=== PATIENT | female | born 1950 | race Caucasian/White ===

== ENCOUNTER 2018-11-13 01:29 | Observation (INO) | payer MEDICARE, OTHER ==
[2018-11-12 13:58] LABS: INR 0.91
[~2018-11-13] VITALS: Ht 165.1 cm; Wt 74.8 kg
[2018-11-13] VITALS (18 sets, daily range): BP systolic 97–144; BP diastolic 61–90
[~2018-11-13 01:29] MED LIST: ACETAMINOPHEN 500 MG TAB PO ONE; ATOR20TA22 PO; CELECOXIB 200 MG CAP PO ONE; DULO60CA56 PO; FAMOTIDINE 20 MG TAB PO ONE; LIDOCAINE/SOD BICARB 8.4% SYR ID ONE; MIDAZOLAM 2 MG/2 ML VIAL IVP PRN; MULT-1335 PO; NORMOSOL R SOLN(*) 1000 ML BAG 1,000 ML IV PRN; OMEP40CA48 PO; PREGABALIN 150 MG CAPSULE PO ONE; ROPIVACAINE 0.2% 400 MG/200ML 250 ML CONINFUS ONE; ROPIVACAINE/EPI/CLONIDINE/KET 50 ML SYRINGE INJ ONE; TRANEXAMIC AC 1000 MG/10ML SDV 1,000 MG in DEXTROSE 5% 50 ML BAG 50 ML IV ONE; ceFAZolin(*) 1 GM VIAL 1 GM in NS(*) 0.9% 100 ML ADDVANT BAG 100 ML IVPB ONE
[2018-11-13] MEDS ORDERED: FAMOTIDINE 20 MG TAB PO ONE (06:15)
[2018-11-13] MEDS ORDERED: PREGABALIN 150 MG CAPSULE PO ONE (06:15)
[2018-11-13] MEDS ORDERED: ROPIVACAINE/EPI/CLONIDINE/KET 50 ML SYRINGE INJ ONE (06:15)
[2018-11-13] MEDS ORDERED: ceFAZolin(*) 1 GM VIAL 1 GM in NS(*) 0.9% 100 ML MINI-BAG 100 ML IVPB ONE (06:15)
[2018-11-13] MEDS ORDERED: TRANEXAMIC AC 1000 MG/10ML SDV 1,000 MG in DEXTROSE 5% 50 ML BAG 50 ML IV ONE (06:15)
[2018-11-13] MEDS ORDERED: CELECOXIB 200 MG CAP PO ONE (06:15)
[2018-11-13] MEDS ORDERED: MIDAZOLAM 2 MG/2 ML VIAL IVP PRN (06:15)
[2018-11-13] MEDS ORDERED: ROPIVACAINE 0.2% 400 MG/200ML 250 ML CONINFUS ONE (06:15)
[2018-11-13] MEDS ORDERED: ACETAMINOPHEN 500 MG TAB PO ONE (06:15)
[2018-11-13] MEDS ORDERED: LIDOCAINE/SOD BICARB 8.4% SYR ID ONE (06:15)
[2018-11-13] MEDS ORDERED: NORMOSOL R SOLN(*) 1000 ML BAG 1,000 ML IV PRN ×2 (06:15→09:40)
[2018-11-13] MEDS ORDERED: fentaNYL CITR 250 MCG/5 ML AMP ONE (06:34)
[2018-11-13] MEDS ORDERED: PROPOFOL EMUL(*) 10MG/ML 20 ML 20 ML ONE (06:35)
[2018-11-13] MEDS ORDERED: LIDOCAINE 2% IV 100 MG/5ML SYR ONE (06:35)
[2018-11-13] MEDS ORDERED: EPINEPHrine HCL 1 MG/ML AMP ONE (06:38)
[2018-11-13] MEDS ORDERED: ROPIVACAINE 0.5% 20 ML VIAL ONE (06:38)
[2018-11-13] MEDS ORDERED: DEXAMETHASONE SOD PHOS 10MG/ML ONE (06:38)
[2018-11-13] MEDS ORDERED: DEXAMETHASONE SOD 4 MG/ML VIAL ONE (06:58)
[2018-11-13] MEDS ORDERED: ONDANSETRON 4 MG/2 ML VIAL ONE (07:30)
[2018-11-13] MEDS ORDERED: KETAMINE HCL 200 MG/20 ML MDV ONE ×2 (07:33→08:27)
[2018-11-13] MEDS ORDERED: fentaNYL CITR 100 MCG/2 ML AMP ONE ×2 (08:02→09:34)
[2018-11-13] MEDS ORDERED: PROMETHAZINE 25 MG/ML 1 ML AMP IVP PRN (09:40)
[2018-11-13] MEDS ORDERED: traMADol 50 MG TAB PO PRN (09:40)
[2018-11-13] MEDS ORDERED: MAGNESIUM HYDROXIDE* 30ML UDCP PO PRN (09:40)
[2018-11-13] MEDS ORDERED: MORPHINE 4 MG/ML SDV IVP PRN (09:40)
[2018-11-13] MEDS ORDERED: ZOLPIDEM TARTRATE 5 MG TAB PO PRN (09:40)
[2018-11-13] MEDS ORDERED: BISACODYL 10 MG SUPP PR PRN (09:40)
[2018-11-13] MEDS ORDERED: FLUSH 10 ML SYR IVP PRN (09:40)
[2018-11-13] MEDS ORDERED: ONDANSETRON 4 MG/2 ML VIAL IVP PRN (09:40)
--- NOTE | 2018-11-13 09:43 | RADIOLOGY IMAGING REPORT ---
FACILITY: [facility] PATIENT NAME: Cecilia Gould : 1950 MR: [id number] V: [id number] EXAM DATE: ORDERING PHYSICIAN: DAVIDA STALEY TECHNOLOGIST: [place]: [facility] [place] Patient: Cecilia Gould : 1950 Visit/Account:[id number] Date of Sevice: 11/13/2018 KNEE LIMITED RIGHT Indication: Postop Comparison: None available Findings: There are postoperative changes from three part TKA. Components appears well seated. No abnormal brook cencies are identified. IMPRESSION: 1. Unremarkable postoperative appearance of right TKA Report Dictated By: Mikey Dodson at 11/13/2018 9:31 AM Report E-Signed By: Mikey Dodson at 11/13/2018 9:38 AM WSN:[id number]
--- NOTE | 2018-11-13 10:17 | OPERATIVE REPORT 1 ---
EVENT DATE: November 13, 2018 SURGEON: Jose Jacques MD ANESTHESIOLOGIST: Dante Woods MD ANESTHESIA: Right indwelling adductor canal block followed by general anesthesia. We also utilized 50 cc of our standard Toradol/ropivacaine cocktail. LICENSED REACTOR OPERATOR: Giovanni Bradley PA-C PREOPERATIVE DIAGNOSIS Right knee degenerative joint disease. POSTOPERATIVE DIAGNOSIS Right knee degenerative joint disease. PROCEDURE PERFORMED Right total knee arthroplasty. IMPLANTS MicroPort medial pivot shift CS system with a 4 tibia, 3 femur, 10 mm CS insert, 8 x 32 symmetric patella, femur cut 6 degrees valgus, 10 mm. We also utilized two packages of [employer] [place] Blue cement and ZipLine Wound Closure System. SPECIMENS None. COMPLICATIONS None. BLOOD LOSS Less than 200 cc. OPERATION The patient received appropriate preoperative antibiotic, was brought to the OR, where Dr. Woods performed right adductor canal block followed by general anesthesia. Right thigh tourniquet was placed but was not utilized. Right lower extremity prepped and draped in the usual sterile fashion. Midline incision was made followed by a medial parapatellar arthrotomy. I dissected subperiosteally along the medial tibial plateau to the level of the semimembranosus insertion. Fat pad was excised, patella released and everted and knee brought up into hyperflexion. ACL and PCL were then subperiosteally by Bovie. The remaining articular cartilage was removed from the distal femoral condyle by sagittal saw. Step-cut drill was utilized to broach the femoral canal. Intramedullary distal cut alignment any was then positioned. We set up the cutting block to 6 degrees valgus, 10 mm, and with care taken to protect the soft tissues we made our distal cut. 3-degree external rotation sizer was then positioned, referencing off the anterior flange of the femur, epicondyles and posterior condyles and this was sized to a #3. We drilled the 3-degree external rotation holes. Four-in-one cutting block was positioned, followed by Z-retractors to protect the soft tissue and made our four cuts. The tibia was brought anterior in the femur with appropriate retractors. Step cut drill was utilized to broach the canal. We placed our intramedullary tibial guide and then referencing 4 mm off the eburnated lateral tibial plateau we set out cutting block up, referencing for rotation. We pinned this into place and care taken to protect the soft tissues we made our tibial cut. This was sized to a #4. The stump of the ACL and PCL, medial and lateral meniscus were removed by Bovie followed by removal of posterior osteophytes by curved osteotome and elevation of the capsule by Recinos elevator. Referencing from the previous rotation, tibial baseplate trial was then positioned, pinned and placed 10 mm trial insert and #3 femur trial. We achieved full extension, flexion of 140 degrees, stability to varus/valgus stress at 90 degrees with satisfactory anterior drawer. The knee was brought out in full extension. Patella was sized to 25 mm. We set up our cutting guide for 8 mm cut, made our cut and this was sized to 32 mm x 8. Peg hole guide was positioned inferiorly and medially and peg hole was drilled. Peg hole trial was then positioned and placed. The knee was brought up into flexion. Peg holes drilled for the femur and pegs were placed followed by cutting for a trochlear chip and trochlear chip was placed. Again, we had the aforementioned range of motion stability and patella tracked well. The patella, femur, tibial insert were removed. Appropriate retractors were placed to set up our tibial keel guide, which was cut, reamed and punched. Instrumentation was removed. Bone plug placed in the distal femur. Knee was brought into full extension with full extension. Knee was copiously irrigated by pulse lavage while we mixed two packages of cement. We then injected 10 cc of our cocktail in the posterior capsule. We then brought the knee up into flexion and once again irrigated the bone and soft tissues and then started with the tibia. This was cemented into placed followed by our 10 mm CS insert and our #3 femur. Excess cement was removed. Knee was brought out into full extension to axial compression while we cemented the patella. It took 13 minutes for the cement to cure and while this was occurring we injected the remaining 40 cc of our cocktail into the distal quad mechanism and then copiously irrigated once again. Once the cement had cured, again we had the aforementioned range of motion and stability. The knee was placed at 30 degrees. The arthrotomy was closed with #2 Vicryl followed by 2-0 Vicryl for subcutaneous tissues. With the knee at 45 degrees after cleaning the wounds, we applied our ZipLine wound closure system. We then applied a compressive dressing. Patient extubated and taken to recovery in stable condition. Hospitalist team to be consulted for medical management and anticoagulation, PT for rehab. JOSETTE
[2018-11-13] MEDS: KETOROLAC TROM 10MG TAB PO PRN ×2 (10:53→22:15)
--- NOTE | 2018-11-13 11:35 | NUR ---
Physical Therapy Impression PT eval complete. Pt completed bed mobility with Jesse. Pt requires verbal cues for safety as she is slightly impulsive with mobility at this time. CGA for STS transfer and side step to HOB with RW. CPM fit and placed running 0-30 degrees on the R) LE at end of session. Physical Therapy Goals 1: Pt to complete bed mobility with SBA 2: Pt to complete transfers with SBA and RW 3: Pt to ambulate 150' with SBA and RW 4: Pt to asc/desc 4 stairs with railing and CGA 5: Pt to be I) with use of CPM Patient's Goals
--- NOTE | 2018-11-13 13:17 | Hospitalist Consultation ---
History of Present Illness Requesting Physician Dr. Jacques Reason for Consult Medical Management Chief Complaint s/p right knee replacement History of Present Illness She was admitted s/p right knee replacement. It is reported the surgery went well and without complication. History Problems: (1) GERD (gastroesophageal reflux disease) Status: Chronic (2) Depression Status: Chronic (3) Hyperlipidemia Status: Chronic Home Meds Reported Medications Omeprazole (OMEPRAZOLE) 40 Mg Capsule.dr, 40 MG PO QDAY, CAP 11/06/18 Duloxetine Hcl (CYMBALTA) 60 Mg Capsule.dr, 60 MG PO QDAY, #5 CAP 10/10/18 Atorvastatin Calcium (LIPITOR) 20 Mg Tablet, 1 TAB PO QHS, TAB 10/10/18 Multivitamin With Minerals (MULTIPLE VITAMIN) 1 Each Tablet, 1 EACH PO DAILY, TAB 10/10/18 Allergies: Coded Allergies: No Known Drug Allergies (Unverified , 10/09/18) Patient History: FH: lung cancer MOTHER, Hx Smoking: Yes (QUIT 15 YRS AGO, 1/ PPD X 25) Smoking Status: Former Smoker Caffeine Intake: Coffee, Soda Caffeine/Cups Per Day: 2 CCD, SODA ONCE A WEEK Hx Alcohol Use: Yes Alcohol Used: Wine Hx Substance Use Disorder: No Social Drug Use: Never History of IV Drug Use: No Review of Systems All Systems Reviewed/Normal: Yes, Except as Noted Exam Vital Signs Vital Signs Date Time Temp Pulse Resp B/P (MAP) Pulse Ox O2 Delivery O2 Flow Rate FiO2 11/13/18 12:50 Nasal Cannula 1.0 11/13/18 10:20 85 16 98 11/13/18 07:19 98.6 144/83 (103) General Appearance: Alert, Awake, No Acute Distress, Afebrile Neuro: No Gross deficits Cardiovascular: Regular Rate and Rhythm Respiratory: No Respiratory Distress, Clear to Auscultation GI: Abd Soft and Non-Tender Psych: Alert & Oriented X3, Appropriate Mood & Affect Assessment and Plan Problems: (1) Status post right knee replacement Status: Acute Assessment & Plan: Followed by Dr. Jacques. She will be placed on Aspirin for DVT prophylaxis. (2) Depression Status: Chronic Assessment & Plan: Continue chronic Cymbalta. (3) Hyperlipidemia Status: Chronic Assessment & Plan: Continue chronic atorvastatin. (4) GERD (gastroesophageal reflux disease) Status: Chronic Assessment & Plan: She is on chronic treatment with Omeprazole. She will be placed on Protonix during admission. Venous Thromboembolism Antithrombotics Is Pt On Any Antithrombotics?: No Prophylaxis Tx Contraindicated Pharmacological Contraindicati: Surgical Contraindication DRE OSCAR Nov 13, 2018 13:17
[2018-11-13] MEDS ORDERED: NS(*) 0.9% 500 ML BAG 500 ML ONE (14:24)
[2018-11-13] MEDS: oxyCODONE HCL 5 MG CAP PO PRN ×2 (14:29→18:10)
[2018-11-13] MEDS: ceFAZolin(*) 1 GM VIAL 1 GM in NS(*) 0.9% 100 ML MINI-BAG 100 ML IVPB SCH (16:40)
[2018-11-13] MEDS: ACETAMINOPHEN 500 MG TAB PO SCH (18:06)
[2018-11-13] MEDS ORDERED: ATORVASTATIN 10 MG TAB PO SCH (21:00)
[2018-11-14] MEDS: oxyCODONE HCL 5 MG CAP PO PRN ×2 (00:43→09:03)
[2018-11-14] MEDS: ACETAMINOPHEN 500 MG TAB PO SCH ×2 (00:43→09:03)
[2018-11-14] MEDS: ceFAZolin(*) 1 GM VIAL 1 GM in NS(*) 0.9% 100 ML MINI-BAG 100 ML IVPB SCH ×2 (00:44→09:02)
[2018-11-14 03:17] VITALS: BP 97/60
[2018-11-14] MEDS: KETOROLAC TROM 10MG TAB PO PRN (06:44)
[2018-11-14 07:40] VITALS: BP 100/57
[2018-11-14] MEDS ORDERED: DULoxetine HCL 30 MG CAPCR PO SCH (09:00)
[2018-11-14] MEDS ORDERED: PANTOPRAZOLE SOD 40 MG TABEC PO SCH (09:00)
[2018-11-14] MEDS ORDERED: ASPIRIN 325 MG TAB PO SCH (09:00)
[2018-11-14] MEDS ORDERED: ASPI-757 PO (09:41)
--- NOTE | 2018-11-14 09:43 | Hospitalist Progress Note ---
Subjective Progress Notes Subjective She was admitted s/p knee replacement. She is doing well post-operatively. She had no acute events overnight. Patient Complains of: Cardiovascular: No: Chest Pain Respiratory: No: Shortness of Breath Physical Exam Vital Signs Date Time Temp Pulse Resp B/P (MAP) Pulse Ox O2 Delivery O2 Flow Rate FiO2 11/14/18 09:14 81 11/14/18 07:40 98.6 64 16 100/57 (71) Room Air 11/14/18 03:17 1.0 Intake and Output 11/14/18 07:00 Intake Total 2327 ml Balance 2327 ml Intake Oral 622 ml IV Total 1705 ml # Voids 4 # Bowel Movements 1 General Appearance: Alert, Awake, No Acute Distress, Afebrile Neuro: No Gross deficits Cardiovascular: Regular Rate and Rhythm Respiratory: No Respiratory Distress, Clear to Auscultation GI: Soft and Non-Tender Psych: Alert & Oriented X3, Appropriate Mood & Affect Assessment and Plan Problems: (1) Status post right knee replacement Status: Acute Assessment & Plan: Followed by Dr. Jacques. She will be placed on Aspirin for DVT prophylaxis. (2) Depression Status: Chronic Assessment & Plan: Continue chronic Cymbalta. (3) Hyperlipidemia Status: Chronic Assessment & Plan: Continue chronic atorvastatin. (4) GERD (gastroesophageal reflux disease) Status: Chronic Assessment & Plan: She is on chronic treatment with Omeprazole. She will be placed on Protonix during admission. Exam Sepsis Risk: No Definite Risk DRE OSCAR Nov 14, 2018 09:43
[2018-11-14] MEDS ORDERED: KET10 PO (11:07)
[2018-11-14] MEDS ORDERED: OXYC5CAP21 PO (11:08)
[2018-11-14] MEDS ORDERED: TRAM-420 PO (11:09)
[2018-11-14 11:19] VITALS: BP 106/59
--- NOTE | 2018-11-14 16:00 | NUR ---
Physical Therapy Impression Pt safe for DC when medically appropriate. Physical Therapy Goals 1: Pt to complete bed mobility with SBA 2: Pt to complete transfers with SBA and RW 3: Pt to ambulate 150' with SBA and RW 4: Pt to asc/desc 4 stairs with railing and CGA 5: Pt to be I) with use of CPM Patient's Goals
--- NOTE | 2018-11-15 15:06 | DISCHARGE SUMMARY ---
DATE OF ADMISSION: November 13, 2018 DATE OF DISCHARGE: November 14, 2018 HISTORY Patient is a 68-year-old female admitted to Day Surgery and underwent right total knee arthroplasty without complication. Postoperatively, the hospitalist team was consulted for medical management and anticoagulation and PT for rehab. She progressed in a very rapid manner. On postop day 1, she had no pain. Her right lower extremity was neurovascularly intact. She desired a discharge to home after she saw PT in the morning. PLAN Plan is for PT clearance, then hospitalist clearance, and if she achieves both of these, she can be discharged to home with home PT and CPM. Nursing is instructed to educate the patient in how to change the dressings on the 15 of November as well as remove the indwelling adductor canal catheter. Outpatient PT will be set up. She was recommended Tylenol, Toradol, tramadol, and Oxy IR for pain relief. We will follow her up in our [place] clinic. PRINCIPAL DIAGNOSIS Right knee degenerative joint disease. PRINCIPAL PROCEDURE Right total knee arthroplasty. JOSETTE
== END 2018-11-14 11:03 | disposition home or self-care (01) ==
LOC: OR 01:29 → MED 10:20
PROVIDERS: ADMIT Orthopaedic Surgery; ATTEND Orthopaedic Surgery
DX: M17.11 Unilateral primary osteoarthritis, right knee (principal); E78.5 Hyperlipidemia, unspecified; F32.9 Major depressive disorder, single episode, unspecified; K21.9 Gastro-esophageal reflux disease without esophagitis
CPT/HCPCS: 27447; 73560; 85610; 86850; 86900; 86901; 97116; 97161; A9270; C1713; C1776; G0378; J0171; J0690; J1100; J2001; J2250; J2405; J2704; J2795; J3010; J3490; J7040; J7060